=== PATIENT | male | born 1970 | race Caucasian/White ===

== ENCOUNTER 2020-07-03 09:58 | Observation (INO) ==
[2020-07-03] MEDS ORDERED: 0.9 % Sodium Chloride 1,000 ML IVC SCH (11:00)
[2020-07-03] MEDS ORDERED: Ondansetron 4 MG/2 ML VIAL IVP PRN ×3 (11:00→16:43)
[2020-07-03] MEDS ORDERED: Ampicillin/Sulbactam 3,000 MG in 0.9 % Sodium Chloride Mini Bag 100 ML IVPB SCH (12:00)
[2020-07-03 13:23] LABS: Adenovirus Not Detected (Not Detect); Coronavirus 229E Not Detected (Not Detect); Coronavirus HKU1 Not Detected (Not Detect); Coronavirus NL63 Not Detected (Not Detect); Coronavirus OC43 Not Detected (Not Detect); Human Metapneumovirus Not Detected (Not Detect); Human Rhinovirus/Enterovirus Not Detected (Not Detect); SARS-CoV-2 Not Detected (Not Detect)
[2020-07-03 13:24] LABS: Bordetella Pertussis Not Detected (Not Detect); Chlamydophila pneumoniae Not Detected (Not Detect); Influenza A Subtype 2009 H1 Not Detected (Not Detect); Influenza B Not Detected (Not Detect); Mycoplasma pneumoniae Not Detected (Not Detect); Parainfluenza Virus 1 Not Detected (Not Detect); Parainfluenza Virus 2 Not Detected (Not Detect); Parainfluenza Virus 3 Not Detected (Not Detect); Parainfluenza Virus 4 Not Detected (Not Detect); Respiratory Syncytial Virus Not Detected (Not Detect)
[2020-07-03] MEDS ORDERED: *HR* Rocuronium Bromide 50 MG/5 ML VIAL ONE (14:07)
[2020-07-03] MEDS ORDERED: Lidocaine -MPF 2% 2 ML VIAL ONE (14:07)
[2020-07-03] MEDS ORDERED: Ondansetron 4 MG/2 ML VIAL ONE (14:07)
[2020-07-03] MEDS ORDERED: *HR* Midazolam HCl 2 MG/2 ML VIAL ONE (14:07)
[2020-07-03] MEDS ORDERED: *HR* FentaNYL (PF) 100 MCG/2 ML VIAL ONE ×2 (14:07→15:08)
[2020-07-03] MEDS ORDERED: *HR* Propofol 200 MG/20 ML VIAL IVP ONE (14:08)
[2020-07-03] MEDS ORDERED: Promethazine Syrup 6.25 MG/5 ML PO PRN (14:29)
[2020-07-03] MEDS ORDERED: *HR* HYDROmorphone (PF) 1 MG/ML SYRINGE IVP PRN (14:29)
[2020-07-03] MEDS ORDERED: *HR* OxyCODONE Immed Rel 5 MG TABLET PO PRN (14:29)
[2020-07-03] MEDS ORDERED: *HR* Labetalol 20 MG/4 ML SYRINGE IVP PRN (14:29)
[2020-07-03] MEDS ORDERED: Acetaminophen IV 1,000 MG/100 ML INFUS..BTL ONE (14:32)
[2020-07-03] MEDS ORDERED: Dexamethasone 4 MG/ML VIAL ONE (15:27)
[2020-07-03] MEDS ORDERED: Baclofen 10 MG TABLET PO PRN (16:43)
[2020-07-03] MEDS ORDERED: *HR* OxyCODONE/APAP 5/325 TABLET PO PRN (16:43)
[2020-07-03] MEDS: Ketorolac 15 MG/ML VIAL IVP SCH (17:25)
[2020-07-03] MEDS: Ampicillin/Sulbactam 3,000 MG in 0.9 % Sodium Chloride Mini Bag 100 ML IVPB SCH (17:29)
[2020-07-04] MEDS: Ampicillin/Sulbactam 3,000 MG in 0.9 % Sodium Chloride Mini Bag 100 ML IVPB SCH ×3 (00:43→13:08)
[2020-07-04] MEDS: Ketorolac 15 MG/ML VIAL IVP SCH ×3 (00:43→13:01)
[2020-07-04 11:18] VITALS: BP 117/66
== END 2020-07-04 14:04 | disposition home or self-care (01) ==
LOC: 3ANU
PROVIDERS: ADMIT Surgery; ATTEND Surgery